=== PATIENT | male | born 1960 | race Caucasian/White ===

== ENCOUNTER 2019-04-18 13:28 | Emergency (ER) | payer SELFPAY ==
[~2019-04-18] VITALS: Ht 172.7 cm; Wt 72.6 kg
[~2019-04-18 13:28] MED LIST: HYDACE5 PO; IBUP600 PO; NAPR500 PO; OXYACE5T PO
== END 2019-04-18 15:41 | disposition home or self-care (01) ==
LOC: ER 13:28
DX: S61.012A Laceration without foreign body of left thumb without damage to nail, initial encounter (principal); W26.8XXA Contact with other sharp object(s), not elsewhere classified, initial encounter
CPT/HCPCS: 12001; 90471; 90714; 99282-25

== ENCOUNTER → 2023-03-16 | Outpatient (CLI) | payer SELFPAY | LOC: LAB 18:51 → LAB SHORT 18:51 | DX: R30.0 Dysuria (principal) | CPT/HCPCS: 87086 ==